=== PATIENT | female | born 1995 | race Caucasian/White ===

== ENCOUNTER → 2017-01-03 | Outpatient (CLI) | payer OTHER | LOC: LC 16:33 | PROVIDERS: ATTEND Student in an Organized Health Care Education/Training Program | PROC: 4A1HXCZ Monitoring of Products of Conception, Cardiac Rate, External Approach (ICD-10-PCS; principal; 2017-01-03) | DX: O47.03 False labor before 37 completed weeks of gestation, third trimester (principal); Z3A.33 33 weeks gestation of pregnancy | CPT/HCPCS: 59025 ==

== ENCOUNTER 2017-02-16 19:02 | Inpatient (IN) | payer OTHER ==
--- NOTE | 2017-02-16 19:20 | Non Stress Test Report ---
Non Stress Test Datetime Report Generated by CPN: 02/16/2017 19:20 DEMOGRAPHIC EGA NST: 33.4 INDICATION Indication for Study: Ordered by Provider Indication for Study (NST) Other: nst MONITORING Monitor Explained: Monitor Explained; Test Explained; Patient Verbalized Understanding Time on Monitor: 01/03/2017 17:15 Time off Monitor: 01/03/2017 18:06 NST Duration: 51 NST INTERVENTIONS NST Interventions: PO Hydration; Reposition Patient Physician Notified NST: Dr. Mandel BABY A: [id number] BABY A Movement : Present Contraction Frequency : 2-3 FHR Baseline : 125 Accelerations : 15X15 Decelerations : None Variability : Moderate 6-25bpm NST Review: Meets Criteria for Reactive NST NST Review and Verified By : Tamra vee RNC NST Results: Reactive NST REPORT Report Trigger: Send Report
[2017-02-16 20:00] LABS: AMNISURE (ROM) POSITIVE (NEGATIVE)
[2017-02-16 20:02] LABS: APPEARANCE,URINE SLIGHTLY-CLOUDY; BILIRUBIN,URINE NEGATIVE (NEGATIVE); GLUCOSE, URINE NEGATIVE (NEGATIVE); KETONES,URINE NEGATIVE (NEGATIVE); LEUKOCYTE ESTERASE,URINE NEGATIVE (NEGATIVE); NITRITE,URINE NEGATIVE (NEGATIVE); PROTEIN,URINE 30 mg/dL (NEGATIVE); URINE SPECIFIC GRAVITY 1.014; UROBILINOGEN,URINE NEGATIVE mg/dL (<2.0)
[2017-02-16] MEDS ORDERED: RINGERS SOLUTION,LACTATED 1,000 ML IV ONE (20:10)
[2017-02-16 20:18] LABS: URINE BARBITURATES SCREEN NEGATIVE; URINE METHADONE SCREEN NEGATIVE; URINE OPIATES LOW NEGATIVE; URINE PHENCYCLIDINE SCREEN NEGATIVE
[2017-02-16 20:45] LABS: ABSOLUTE BASOPHILS # (AUTO) 0.1 10^3/uL (0.0-0.2); ABSOLUTE EOSINOPHILS # (AUTO) 0.1 10^3/uL (0.0-0.6); ABSOLUTE LYMPHOCYTES (AUTO) 2.5 10^3/uL (0.5-4.7); ABSOLUTE MONOCYTES (AUTO) 1.1 10^3/uL (0.1-1.4); ABSOLUTE NEUT (AUTO) 11.1 10^3/uL (1.7-8.2); BASOPHILS % (AUTO) 0.8 % (0-2); EOSINOPHILS % (AUTO) 0.4 % (0-6); HEMATOCRIT 36.4 % (36.0-47.0); HEMOGLOBIN 12.1 g/dL (12.0-15.5); HGB HCT DIFFERENCE -0.1; LYMPHOCYTES % (AUTO) 16.8 % (13-45); MEAN CORPUSCULAR HEMOGLOBIN 28.5 pg (27.0-33.4); MEAN CORPUSCULAR HGB CONC 33.2 g/dL (32.0-36.0); MEAN CORPUSCULAR VOLUME 86 fl (80-97); MONOCYTES % (AUTO) 7.5 % (3-13); RED BLOOD COUNT 4.24 10^6/uL (3.72-5.28); RED CELL DISTRIBUTION WIDTH 14.4 % (11.5-14.0); SEGMENTED NEUTROPHILS % (AUTO) 74.5 % (42-78); WHITE BLOOD COUNT 14.9 10^3/uL (4.0-10.5)
[2017-02-16] MEDS ORDERED: OXYTOCIN/NORMAL SALINE 20 UNIT/1,000 ML RTUINJ ONE (20:55)
[2017-02-16] MEDS ORDERED: MISOPROSTOL 0.2 MG TABLET ONE (20:55)
[2017-02-16] MEDS ORDERED: LIDOCAINE 1% INJ-PF (10 MG/ML) 30 ML SDV ONE (20:55)
[2017-02-16] MEDS ORDERED: OXYTOCIN/NORMAL SALINE 1,000 ML IV PRN (21:24)
[2017-02-16] MEDS ORDERED: EPHEDRINE SULFATE INJ 50 MG/1 ML AMPULE ONE (22:14)
[2017-02-16] MEDS ORDERED: FENTANYL CITRATE INJ/PF 100 MCG/2 ML AMPUL ONE (22:14)
[2017-02-16] MEDS ORDERED: PHENYLEPHRINE HCL INJ/PF 10 MG/1 ML SDV ONE (22:15)
[2017-02-16] MEDS ORDERED: BUPIVACAINE HCL 0.25 % INJ/PF (2.5 MG/1 ML) 30 ML VIAL ONE (22:15)
[2017-02-16] MEDS ORDERED: FENTANYL/BUPIVACAINE/NS/PF 200 MCG/100 ML RTUINJ EPI ONE (22:15)
[2017-02-17] MEDS ORDERED: FENTANYL CITRATE INJ/PF 100 MCG/2 ML AMPUL ONE (03:25)
[2017-02-17] MEDS ORDERED: ZOLPIDEM TARTRATE 5 MG TABLET PO PRN (04:17)
[2017-02-17] MEDS ORDERED: MAGNESIUM HYDROXIDE SUSP 30 ML UDCUP PO PRN (04:17)
[2017-02-17] MEDS ORDERED: GLYCERIN/WITCH HAZEL LEAF 1 EACH MED..PAD TP PRN (04:17)
[2017-02-17] MEDS ORDERED: DIPH/PERTUSS(ACELL)/TETANUS VAC/PF 0.5 ML SYR (>=10YO) IM PRN (04:17)
[2017-02-17] MEDS ORDERED: OXYTOCIN/NORMAL SALINE 1,000 ML IV PRN (04:17)
[2017-02-17] MEDS ORDERED: MEASLES,MUMPS&RUBELLA VACC/PF 0.5 ML VIAL SUBCUT PRN (04:17)
[2017-02-17] MEDS ORDERED: ACETAMINOPHEN 325 MG TABLET PO PRN (04:17)
[2017-02-17] MEDS ORDERED: PSEUDOEPHEDRINE HCL 30 MG TABLET PO PRN (04:17)
[2017-02-17] MEDS ORDERED: BENZOCAINE/MENTHOL AEROSOL SPRAY 56 ML TOP PRN (04:17)
[2017-02-17] MEDS ORDERED: PROMETHAZINE HCL 25 MG SUPP.RECT PR PRN (04:17)
[2017-02-17] MEDS ORDERED: PROMETHAZINE HCL INJ 25 MG/1 ML VIAL IV PRN (04:17)
[2017-02-17] MEDS ORDERED: ACETAMINOPHEN 650 MG SUPP.RECT PR PRN (04:17)
[2017-02-17] MEDS ORDERED: PROMETHAZINE HCL 25 MG TABLET PO PRN (04:17)
[2017-02-17] MEDS ORDERED: NA PHOS,M-B/NA PHOS,DI-BA (ADULT) 133 ML ENEMA PR PRN (04:17)
[2017-02-17] MEDS ORDERED: DIPHENHYDRAMINE HCL 25 MG CAPSULE PO PRN (04:17)
[2017-02-17] MEDS ORDERED: DIBUCAINE 1% OINTMENT 28 GM TP PRN (04:17)
[2017-02-17] MEDS ORDERED: ACETAMINOPHEN WITH CODEINE #3 TABLET PO PRN ×2 (04:17)
--- NOTE | 2017-02-17 04:31 | Delivery Summary ---
Del Sum A-C Datetime Report Generated by CPN: 02/17/2017 04:31 DELIVERY PERSONNEL DELIVERY PERSONNEL: [phone] Delivery Doctor:: Farnaz Mandel MD Labor and Delivery Nurse:: Qi Sarmiento RNautomatic head sawyer Nurse:: Alpa Zheng RN Historical Society Director/CHRISTOPHER: Kayce Whitt CNA Additional Personnel: : Tamra Neely RN MATERNAL INFORMATION Delivery Anesthesia: Epidural Medications After Delivery: Pitocin Bolus-Please Comment; Pitocin Drip 20 Units/1000ml NSS Meds After Delivery Comment: cytotec 1000mcg ND Estimated Blood Loss (ml): 250 Maternal Complications: Precipitous Labor (<3hrs) Provider Comments: VFI delivered in ANTHONY presentation. No nuchal cord. Shoulders and body delivered without difficulty. Cord doubly clamped and cut and infant to maternal abdomen. Placenta delivered intact spontaneously. FF at U. Uterine exploration revealed no e/o retained POC/placenta. 2nd degree and Bilateral labial lacerations repaired with good hemostasis. Apgars 9/9, weight 7#15. Mother and baby stable upon provider leaving the room. LABOR SUMMARY EDC: 02/17/2017 00:00 No. Babies in Womb: 1 Attempted: No Labor Anesthesia: Epidural LABOR INFORMATION Reason for Induction: Not Applicable Onset of Labor: 02/17/2017 01:25 Complete Dilatation: 02/17/2017 02:46 Oxytocin: Augmentation Group B Beta Strep: negative Steroids Given: None Reason Steroids Not Administered: Not Applicable MEMBRANES Membranes Rupture Method: Spontaneous Rupture of Membranes: 02/16/2017 18:15 Length of Rupture (hr): 8.82 Amniotic Fluid Color: Clear Amniotic Fluid Amount: Small STAGES OF LABOR Stage 1 hr: 1 Stage 1 min: 21 Stage 2 hr: 0 Stage 2 min: 18 Stage 3 hr: 0 Stage 3 min: 2 Total Time in Labor hr: 1 Total Time in Labor min: 41 VAGINAL DELIVERY Episiotomy: None Laceration Extension: Second Degree Laceration Type: Perineal Laceration Repair: Yes Laceration Repair Note: 2nd degree perineal laceration and bilateral labial lacerations repaired with good hemostasis. Sponge Count Correct: Yes Sharps Count Correct: Yes BABY A INFORMATION Delivery Date/Time: 02/17/2017 03:04 Method of Delivery: Vaginal Born in Route : No : N/A Forceps: N/A Vacuum Extraction: N/A Shoulder Dystocia : No PRESENTATION/POSITION BABY A Presentation: Cephalic Cephalic Presentation: Vertex Vertex Position: Right Occipital Anterior Breech Presentation: N/A PLACENTA INFORMATION BABY A Placenta Delivery Time : 02/17/2017 03:06 Placenta Method of Delivery: Spontaneous Placenta Status: Delivered SCORES BABY A Heart Rate 1 min: >100 bpm Resp Effort 1 min: Good Cry Reflex Irritability 1 min: Cough or Sneeze or Pulls Away Muscle Tone 1 min: Active Motion Color 1 min: Body [place], Extremities Blue SCORE 1 MIN: 9 Heart Rate 5 min: >100 bpm Resp Effort 5 min: Good Cry Reflex Irritability 5 min: Cough or Sneeze or Pulls Away Muscle Tone 5 min: Active Motion Color 5 min: Body [place], Extremities Blue Resuscitation Effort 5 min: N/A SCORE 5 MIN: 9 INFANT INFORMATION BABY A Gestational Age at Delivery: 40.0 Gestational Status: Full Term- 39- 40.6 Weeks Infant Outcome : Liveborn (Annotations: Data stored by [facility] on behalf of user) Infant Condition : Stable Infant Sex: Female IDENTIFICATION BABY A Infant Verification Date/Time: 02/17/2017 03:48 ID Band Number: [id number] Mother's Name Verified: Yes Infant RN Verifying Infant: Tamra Zheng RN/ B Torsten RN WEIGHT/LENGTH BABY A Infant Birthweight (gm): 3600 Infant Weight (lb): 7 Weight (oz): 15 Infant Length (in): 21.00 Length (cm): 53.34 CORD INFORMATION BABY A No. Cord Vessels: 3 Nuchal Cord : N/A (Annotations: Data stored by [facility] on behalf of user) Cord Blood Taken: Yes-For Eval (Mom's Blood Type - or O+) Infant Suction: Mouth; Nose ASSESSMENT BABY A Infant Complications: None Physical Findings at Delivery: Within Normal Limits Infant Respirations: Appears Normal Skin to Skin: Yes Skin to Skin Time (min): 35 General Office Clerk/ALS Called : No Care By: AUSTYN Johns RN Transferred To: Remains with Mother SIGNATURES Signature: with User ID: [email or web address]
--- NOTE | 2017-02-17 05:30 | Admission Physical ---
Datetime Report Generated by CPN: 02/17/2017 05:30 CURRENT ADMISSION Chief Complaint: Uterine Contractions; Suspected Ruptured Membranes Indication for Induction: PROM Admit Plan: Admit to Unit; Initiate Labor Induction Protocol ALLERGIES Medication Allergies: No Medication Allergies: No Known Allergies (02/16/2017) Medication Allergies: No Known Allergies (01/03/2017) Latex: No Latex Allergies Food Allergies: no Environmental Allergies: no OBSTETRICAL HISTORY EDC: 02/17/2017 00:00 : 1 Para: 0 Term: 0 : 0 SAB: 0 IAB: 0 Ectopic: 0 Livin Cesareans: 0 VBACs: 0 Multiple Births: 0 Gestational Diabetes: No Rh Sensitization: No Incompetent Cervix: No DONYA: No Infertility: No ART Treatment: No Uterine Anomaly: No IUGR: No Hx Previous C/S: No Macrosomia: No Hx Loss/Stillborn: No PIH: No Hx : No Placenta Previa/Abruption: No Depression/PP Depression: No PTL/PROM: No Post Hemorrhage: No Current Procedures: Ultrasound; NST Obstetrical History Comments: Current- arrythmia resolved SEE RECORDS Alcohol: No Marijuana : No Cocaine: No Other Illicit Drugs: No Cigarettes: Never Smoker. [id number] MEDICAL HISTORY Diabetes: No Blood Transfusion: No Pulmonary Disease (Asthma, TB): No Breast Disease: No Hypertension: No Com Writer Surgery: No Heart Disease: No Hosp/Surgery: No Autoimmune Disorder: No Anesthetic Complications: No Kidney Disease: No Abnormal Pap Smear: No Neuro/Epilepsy: No Psychiatric Disorders: No Other Medical Diseases: No Hepatitis/Liver Disease: No Significant Family History: No Varicosities/Phlebitis: No Trauma/Violence : No Thyroid Dysfunction: No INFECTIOUS HISTORY Gonorrhea: No Genital Herpes: No Chlamydia: No Tuberculosis: No Syphilis: No Hepatitis: No HIV/AIDS Exposure: No Rash or Viral Illness: No HPV: No PHYSICAL EXAM General: Normal HEENT: Normal Neurologic: Normal Thyroid: Normal Heart: Normal Lungs: Normal Breast: Deferred Back: Normal Abdomen: Normal Genitourinary Exam: Normal Extremities: Normal DTRs: Normal Pelvic Type: Adequate Vital Signs: Reviewed VAGINAL EXAM Dilatation: 1 Effacement: 80 Station: 0 Contraction Comments: Q 2-3 MEMBRANES Pooling: Positive [place] Results: Positive Membranes: Ruptured Amniotic Fluid Color: Clear FETUS A EGA: 39.6 Monitoring: External US FHR- Baseline: 125 Variability: Moderate 6-25bpm Accelerations: 10X10 Decelerations: None FHR Category: Category I Estimated Weight (gm): 3723 Presentation: Vertex Admit Comment: 22yo at 39+6ega presents for SROM at 1850 today. +Amnisure. c/b transfer of care at 26wks and apparently audible arrhythmia in fetus that has resolved (saw MFM). GBS negative. Plan for admission and low dose pitocin then increase pitocin for IOL. EFW 8#3oz. Anticipate . CAT I FHR tracing. pelvis adequate for PABLO PLANS FOR LABOR AND DELIVERY Labor and Delivery: None Pain Management: Epidural Feeding Preference: Breast Benefit of Breast Feed Discussed: Yes Circumcision: N/A INFORMED CONSENT Informed Consent Obtained: Vaginal Delivery; Risks, Benefits and Alternatives Discussed Signature: with User ID: [email or web address]
[2017-02-17] MEDS: IBUPROFEN 800 MG TABLET PO SCH ×3 (05:41→21:06)
[2017-02-17] MEDS: FAMOTIDINE 20 MG TABLET PO SCH ×2 (09:35→21:06)
[2017-02-17] MEDS: PRENATAL VITAMIN W-O CA NO5/FE FUMARATE/FA CAPSULE PO SCH (09:36)
[2017-02-17] MEDS: FERROUS SULFATE 325 MG TABLET PO SCH ×2 (09:36→18:03)
[2017-02-17] MEDS: DOCUSATE SODIUM 100 MG CAPSULE PO SCH ×2 (09:52→18:24)
[2017-02-17] MEDS: SENNOSIDES/DOCUSATE 8.6-50 MG 1 EACH TABLET PO SCH (09:52)
--- NOTE | 2017-02-17 11:28 | PDOC PROGRESS REPORT ---
Subjective-OB Subjective: Post Delivery Day: 22 year old. Denies any needs at this time. Pt doing well, no concerns. She reports light bleeding, regular diet and voiding without difficulty. Physical Exam (OB) Vital Signs: Temp Pulse Resp BP Pulse Ox 99.3 F 83 20 122/75 100 02/17/17 08:43 02/17/17 08:43 02/17/17 08:43 02/17/17 08:43 02/17/17 08:43 Intake & Output 02/16/17 02/17/17 02/18/17 06:59 06:59 06:59 Weight 63.6 kg - PIH/Pre-Eclampsia DTR's: 2 + Clonus: Negative Headache: Absent Epigastric Pain: No Visual Changes: No - Lochia Lochia Amount: Small 10-25 ml Lochia Color: Rubra/Red - Abdomen Description: Soft Hernia Present: No Fundal Description: Firm, Midline Fundal Height: u/u - u/2 Objective-Diagnostic Laboratory: 02/16/17 20:28 02/16/17 02/16/17 02/16/17 19:23 20:28 20:28 WBC 14.9 H RBC 4.24 Hgb 12.1 Hct 36.4 MCV 86 MCH 28.5 MCHC 33.2 RDW 14.4 H Plt Count 294 Seg Neutrophils % 74.5 Lymphocytes % 16.8 Monocytes % 7.5 Eosinophils % 0.4 Basophils % 0.8 Absolute Neutrophils 11.1 H Absolute Lymphocytes 2.5 Absolute Monocytes 1.1 Absolute Eosinophils 0.1 Absolute Basophils 0.1 Urine Color YELLOW Urine Appearance SLIGHTLY-CLOUDY Urine pH 6.0 Ur Specific [place] 1.014 Urine Protein 30 H Urine Glucose (UA) NEGATIVE Urine Ketones NEGATIVE Urine Blood SMALL H Urine Nitrite NEGATIVE Ur Leukocyte Esterase NEGATIVE Blood Type O POSITIVE Antibody Screen NEGATIVE Assessment and Plan(PN) - Assessment and Plan (1) Vaginal delivery Is this a current diagnosis for this admission?: Yes - Time Spent with Patient Time with patient: Less than 15 minutes Medications reviewed and adjusted accordingly: Yes - Disposition Anticipated Discharge: Home Within: within 24 hours
[2017-02-18] MEDS: IBUPROFEN 800 MG TABLET PO SCH ×3 (05:47→21:18)
[2017-02-18 07:23] LABS: HEMATOCRIT 30.3 % (36.0-47.0); HGB HCT DIFFERENCE -0.6; MEAN CORPUSCULAR HEMOGLOBIN 28.2 pg (27.0-33.4); MEAN CORPUSCULAR HGB CONC 32.6 g/dL (32.0-36.0); MEAN CORPUSCULAR VOLUME 86 fl (80-97); RED BLOOD COUNT 3.52 10^6/uL (3.72-5.28); WHITE BLOOD COUNT 13.6 10^3/uL (4.0-10.5)
[2017-02-18 07:29] LABS: HEMOGLOBIN 9.9 g/dL (12.0-15.5)
[2017-02-18] MEDS: SENNOSIDES/DOCUSATE 8.6-50 MG 1 EACH TABLET PO SCH (09:25)
[2017-02-18] MEDS: FERROUS SULFATE 325 MG TABLET PO SCH ×2 (09:25→16:37)
[2017-02-18] MEDS: PRENATAL VITAMIN W-O CA NO5/FE FUMARATE/FA CAPSULE PO SCH (09:25)
[2017-02-18] MEDS: DOCUSATE SODIUM 100 MG CAPSULE PO SCH ×2 (09:25→16:37)
[2017-02-18] MEDS: FAMOTIDINE 20 MG TABLET PO SCH ×2 (09:25→21:18)
--- NOTE | 2017-02-18 11:57 | PDOC PROGRESS REPORT ---
Subjective-OB Subjective: Post Delivery Day: 22 year old. Denies any needs at this time. Doing well, no concerns. She reports light bleeding, regular diet and voiding well. Physical Exam (OB) Vital Signs: Temp Pulse Resp BP Pulse Ox 98.0 F 72 15 114/68 100 02/18/17 08:10 02/18/17 08:10 02/18/17 08:10 02/18/17 08:10 02/18/17 08:10 Intake & Output 02/17/17 02/18/17 02/19/17 06:59 06:59 06:59 Weight 63.6 kg - PIH/Pre-Eclampsia DTR's: 2 + Clonus: Negative Headache: Absent Epigastric Pain: No Visual Changes: No - Lochia Lochia Amount: Small 10-25 ml Lochia Color: Rubra/Red - Abdomen Description: Soft Hernia Present: No Fundal Description: Firm Fundal Height: u/u - u/2 Objective-Diagnostic Laboratory: 02/18/17 07:08 02/18/17 07:08 WBC 13.6 H RBC 3.52 L Hgb 9.9 L D Hct 30.3 L MCV 86 MCH 28.2 MCHC 32.6 RDW 15.0 H Plt Count 248 Assessment and Plan(PN) - Assessment and Plan (1) Vaginal delivery Is this a current diagnosis for this admission?: Yes - Time Spent with Patient Time with patient: Less than 15 minutes Medications reviewed and adjusted accordingly: Yes - Disposition Anticipated Discharge: Home Within: within 24 hours
[2017-02-19] MEDS: IBUPROFEN 800 MG TABLET PO SCH (06:07)
[2017-02-19 08:20] VITALS: BP 119/82
[2017-02-19] MEDS: DOCUSATE SODIUM 100 MG CAPSULE PO SCH (09:18)
[2017-02-19] MEDS: PRENATAL VITAMIN W-O CA NO5/FE FUMARATE/FA CAPSULE PO SCH (09:18)
[2017-02-19] MEDS: FAMOTIDINE 20 MG TABLET PO SCH (09:18)
[2017-02-19] MEDS: SENNOSIDES/DOCUSATE 8.6-50 MG 1 EACH TABLET PO SCH (09:18)
[2017-02-19] MEDS: FERROUS SULFATE 325 MG TABLET PO SCH (09:18)
--- NOTE | 2017-02-19 11:29 | PDOC DISCHARGE SUMMARY ---
Final Diagnosis Discharge Date: 02/18/17 - Final Diagnosis (1) Vaginal delivery Is this a current diagnosis for this admission?: Yes Discharge Data - Discharge Medication Home Medications: Pnv No.122/Iron/Folic Acid [ Multi Tablet] 1 tab PO DAILY 01/03/17 Reason(s) for Admission: Onset of Labor Procedures: NST Intrapartum Procedure(s): Spontaneous Vaginal Delivery Complication(s): Laceration-Labial Laceration-Degree: 2nd - Diagnosis Test Laboratory: Temp Pulse Resp BP Pulse Ox 98.0 F 72 15 114/68 100 02/18/17 08:10 02/18/17 08:10 02/18/17 08:10 02/18/17 08:10 02/18/17 08:10 02/16/17 02/16/17 02/18/17 19:23 20:28 07:08 RBC 4.24 3.52 L Hgb 12.1 9.9 L D Hct 36.4 30.3 L Urine Opiates Screen NEGATIVE - Discharge information/Instructions Discharge Activity: Balance Activity w/Rest, Pelvic Rest Discharge Diet: Regular Disposition: HOME, SELF-CARE Follow up with: [facility] in: 4, Weeks
== END 2017-02-19 12:00 | disposition home or self-care (01) | DRG 775 ==
LOC: LC 19:02 → LR 20:04 → 2S 02-17 05:29
PROVIDERS: ADMIT Student in an Organized Health Care Education/Training Program; ATTEND Student in an Organized Health Care Education/Training Program
PROC: 10E0XZZ Delivery of Products of Conception, External Approach (ICD-10-PCS; principal; 2017-02-16)
PROC: 0KQM0ZZ Repair Perineum Muscle, Open Approach (ICD-10-PCS; 2017-02-16)
PROC: 4A1HXCZ Monitoring of Products of Conception, Cardiac Rate, External Approach (ICD-10-PCS; 2017-02-16)
DX: O70.1 Second degree perineal laceration during delivery (principal); Z37.0 Single live birth; O62.3 Precipitate labor; Z3A.39 39 weeks gestation of pregnancy
CPT/HCPCS: 36415; 80307; 81005; 84112; 85025; 85027; 86592; 86850; 86900; 86901; 94760; J2370; J2590; J3010; J3490

== ENCOUNTER 2018-06-13 16:46 | Outpatient (CLI) | payer OTHER | END 2018-06-13 18:33 | disposition home or self-care (01) | LOC: LC 16:46 | PROVIDERS: ATTEND Obstetrics & Gynecology Gynecology | PROC: 4A1HXCZ Monitoring of Products of Conception, Cardiac Rate, External Approach (ICD-10-PCS; principal; 2018-06-13) | DX: O24.419 Gestational diabetes mellitus in pregnancy, unspecified control (principal); Z3A.34 34 weeks gestation of pregnancy | CPT/HCPCS: 59025 ==

== ENCOUNTER 2018-07-05 16:54 | Outpatient (CLI) | payer OTHER ==
--- NOTE | 2018-07-05 17:44 | Non Stress Test Report ---
Non Stress Test Datetime Report Generated by CPN: 07/05/2018 17:44 DEMOGRAPHIC EGA NST: 37.3 EGA NST: 34.2 INDICATION Indication for Study: Ordered by Provider Indication for Study: Diabetes Mellitus; Ordered by Provider VITAL SIGNS Temperature - NST: 98.0 Temperature - NST: 98.1 Pulse - NST: 90 RESP - NST: 16 RESP - NST: 18 NBPSYS NST: 93 NBPDIA NST: 56 MONITORING Monitor Explained: Monitor Explained; Test Explained; Patient Verbalized Understanding Monitor Explained: Monitor Explained; Test Explained; Patient Verbalized Understanding Time on Monitor: 07/05/2018 17:03 Time on Monitor: 06/13/2018 16:58 Time off Monitor: 07/05/2018 17:31 Time off Monitor: 06/13/2018 18:22 NST Duration: 28 NST Duration: 84 NST INTERVENTIONS NST Interventions: PO Hydration NST Interventions: PO Hydration; Reposition Patient Physician Notified NST: Younger Physician Notified NST: DR CONNOR BABY A: [id number] BABY A Movement : Present Movement : Present Contraction Frequency : 7-14 Contraction Frequency : OCC FHR Baseline : 130 FHR Baseline : 125 Accelerations : 15X15 Accelerations : 15X15 Decelerations : None Decelerations : None Variability : Moderate 6-25bpm Variability : Moderate 6-25bpm NST Review: Meets Criteria for Reactive NST NST Review: Meets Criteria for Reactive NST NST Review and Verified By : Domenic Rodarte RN NST Results: Reactive NST Results: Reactive NST REPORT Report Trigger: Send Report
== END 2018-07-05 17:36 | disposition home or self-care (01) ==
LOC: LC 16:54
PROVIDERS: ATTEND Obstetrics & Gynecology
DX: O36.8390 Maternal care for abnormalities of the fetal heart rate or rhythm, unspecified trimester, not applicable or unspecified (principal)
CPT/HCPCS: 59025

== ENCOUNTER 2018-07-06 19:17 | Outpatient (CLI) | payer OTHER ==
[2018-07-06 19:55] LABS: APPEARANCE,URINE CLEAR; BILIRUBIN,URINE NEGATIVE (NEGATIVE); COLOR,URINE STRAW; GLUCOSE, URINE NEGATIVE (NEGATIVE); KETONES,URINE NEGATIVE (NEGATIVE); LEUKOCYTE ESTERASE,URINE SMALL (NEGATIVE); NITRITE,URINE NEGATIVE (NEGATIVE); PROTEIN,URINE NEGATIVE (NEGATIVE); URINE SPECIFIC GRAVITY 1.004; UROBILINOGEN,URINE NEGATIVE mg/dL (<2.0)
[2018-07-06 20:12] LABS: URINE AMPHETAMINES SCREEN NEGATIVE; URINE BARBITURATES SCREEN NEGATIVE; URINE BENZODIAZEPINES SCREEN NEGATIVE; URINE COCAINE SCREEN NEGATIVE; URINE MARIJUANA (THC) SCREEN NEGATIVE; URINE METHADONE SCREEN NEGATIVE; URINE PHENCYCLIDINE SCREEN NEGATIVE
[2018-07-06] MEDS ORDERED: HYDROXYZINE PAMOATE 50 MG CAPSULE PO ONE (20:34)
[2018-07-06] MEDS ORDERED: HYDROXYZINE PAMOATE 50 MG CAPSULE ONE (20:34)
--- NOTE | 2018-07-06 23:23 | Non Stress Test Report ---
Non Stress Test Datetime Report Generated by CPN: 07/06/2018 23:23 DEMOGRAPHIC Test Number: 3 EGA NST: 37.4 INDICATION Indication for Study: Ordered by Provider VITAL SIGNS Temperature - NST: 97.2 Pulse - NST: 89 RESP - NST: 14 NBPSYS NST: 100 NBPDIA NST: 66 URINE RESULTS Urine Protein, NST: Negative Urine Ketones - NST: Negative Urine Glucose - NST: Negative Urine Blood - NST: Negative MONITORING Monitor Explained: Monitor Explained; Test Explained; Patient Verbalized Understanding Time on Monitor: 07/06/2018 19:43 Time off Monitor: 07/06/2018 21:39 NST Duration: 116 NST INTERVENTIONS NST Interventions: PO Hydration Physician Notified NST: Dr. Dustin BABY A: [id number] BABY A Movement : Present Contraction Frequency : 2-3 FHR Baseline : 135 Accelerations : 15X15 Decelerations : None Variability : Moderate 6-25bpm NST Review: Meets Criteria for Reactive NST NST Review and Verified By : A. Misyak NST Results: Reactive NST REPORT Report Trigger: Send Report Report Trigger: Send Report
== END 2018-07-06 21:45 | disposition home or self-care (01) ==
LOC: LC 19:17
PROVIDERS: ATTEND Obstetrics & Gynecology
PROC: 4A1HXCZ Monitoring of Products of Conception, Cardiac Rate, External Approach (ICD-10-PCS; principal; 2018-07-06)
DX: O47.1 False labor at or after 37 completed weeks of gestation (principal); O99.283 Endocrine, nutritional and metabolic diseases complicating pregnancy, third trimester; E03.9 Hypothyroidism, unspecified; Z3A.37 37 weeks gestation of pregnancy
CPT/HCPCS: 80307; 81005; 84112

== ENCOUNTER → 2018-07-12 | Outpatient (CLI) | payer OTHER ==
--- NOTE | 2018-07-12 18:21 | Non Stress Test Report ---
Non Stress Test Datetime Report Generated by CPN: 07/12/2018 18:21 DEMOGRAPHIC EGA NST: 38.3 INDICATION Indication for Study: Diabetes Mellitus; Ordered by Provider MONITORING Monitor Explained: Monitor Explained; Test Explained; Patient Verbalized Understanding Time on Monitor: 07/12/2018 17:18 Time off Monitor: 07/12/2018 17:43 NST Duration: 25 NST INTERVENTIONS NST Interventions: PO Hydration; Reposition Patient Physician Notified NST: P Mir CNM BABY A: [id number] BABY A Movement : Present FHR Baseline : 135 Accelerations : 15X15 Decelerations : None Variability : Moderate 6-25bpm NST Review: Meets Criteria for Reactive NST NST Review and Verified By : Rosmery Camp RNC NST Results: Reactive NST REPORT Report Trigger: Send Report
== END ==
LOC: LC 17:07
PROVIDERS: ATTEND Student in an Organized Health Care Education/Training Program
DX: O36.8390 Maternal care for abnormalities of the fetal heart rate or rhythm, unspecified trimester, not applicable or unspecified (principal)
CPT/HCPCS: 59025

== ENCOUNTER 2018-07-13 18:46 | Inpatient (IN) | payer OTHER ==
[2018-07-13 19:23] LABS: APPEARANCE,URINE CLEAR; BILIRUBIN,URINE NEGATIVE (NEGATIVE); COLOR,URINE STRAW; GLUCOSE, URINE NEGATIVE (NEGATIVE); KETONES,URINE NEGATIVE (NEGATIVE); LEUKOCYTE ESTERASE,URINE SMALL (NEGATIVE); NITRITE,URINE NEGATIVE (NEGATIVE); PROTEIN,URINE NEGATIVE (NEGATIVE); URINE SPECIFIC GRAVITY 1.004; UROBILINOGEN,URINE NEGATIVE mg/dL (<2.0)
[2018-07-13 19:40] LABS: URINE AMPHETAMINES SCREEN NEGATIVE; URINE BARBITURATES SCREEN NEGATIVE; URINE BENZODIAZEPINES SCREEN NEGATIVE; URINE COCAINE SCREEN NEGATIVE; URINE MARIJUANA (THC) SCREEN NEGATIVE; URINE METHADONE SCREEN NEGATIVE; URINE PHENCYCLIDINE SCREEN NEGATIVE
--- NOTE | 2018-07-13 21:17 | Admission Physical ---
Datetime Report Generated by CPN: 07/13/2018 21:17 CURRENT ADMISSION Chief Complaint: Uterine Contractions Indication for Induction: Not Applicable Admit Impression : Term, Intrauterine Admit Plan: Admit to Unit; Initiate Labor Protocol ALLERGIES Medication Allergies: No Medication Allergies: No Known Allergies (07/13/2018) Latex: No Latex Allergies Food Allergies: NKA Environmental Allergies: NKA OBSTETRICAL HISTORY EDC: 07/23/2018 00:00 : 3 Para: 1 : 0 SAB: 1 Livin Gestational Diabetes: Yes Rh Sensitization: No Incompetent Cervix: No DONYA: No Infertility: No ART Treatment: No Uterine Anomaly: No IUGR: No Hx Previous C/S: No Macrosomia: No Hx Loss/Stillborn: No PIH: No Hx : No Placenta Previa/Abruption: No Depression/PP Depression: No PTL/PROM: No Post Hemorrhage: No Obstetrical History Comments: 02/2017 @ 40 weeks; Baby girl G2 - ? SAB G3- Current ; GDM diet controlled SEE RECORDS Alcohol: No Marijuana : No Cocaine: No Other Illicit Drugs: No Cigarettes: Never Smoker. [id number] MEDICAL HISTORY Diabetes: No Blood Transfusion: No Pulmonary Disease (Asthma, TB): No Breast Disease: No Hypertension: No Brewmaster Surgery: No Heart Disease: No Hosp/Surgery: Yes Autoimmune Disorder: No Anesthetic Complications: No Kidney Disease: No Abnormal Pap Smear: No Neuro/Epilepsy: No Psychiatric Disorders: No Other Medical Diseases: No Hepatitis/Liver Disease: No Significant Family History: No Varicosities/Phlebitis: No Trauma/Violence : No Thyroid Dysfunction: Yes Medical History Comments: Hypothyroid - pt taking Synthroid INFECTIOUS HISTORY Gonorrhea: No Genital Herpes: No Chlamydia: No Tuberculosis: No Syphilis: No Hepatitis: No HIV/AIDS Exposure: No Rash or Viral Illness: No HPV: No PHYSICAL EXAM General: Normal HEENT: Normal Neurologic: Normal Thyroid: Normal Heart: Normal Lungs: Normal Breast: Deferred Back: Normal Abdomen: Normal Genitourinary Exam: Normal Extremities: Normal DTRs: Normal Pelvic Type: Adequate Vital Signs: Reviewed VAGINAL EXAM Dilatation: 5 Effacement: 80 Station: -1 MEMBRANES Pooling: Negative Membranes: Intact FETUS A EGA: 38.4 Monitoring: External US FHR- Baseline: 140 Variability: Moderate 6-25bpm Decelerations: None FHR Category: Category I Presentation: Vertex PLANS FOR LABOR AND DELIVERY Labor and Delivery: None Pain Management: Epidural Feeding Preference: Breast Benefit of Breast Feed Discussed: Yes Circumcision: Yes INFORMED CONSENT Signature: with User ID: [email or web address]
[2018-07-13] MEDS ORDERED: FENTANYL CITRATE INJ/PF 100 MCG/2 ML AMPUL ONE (21:51)
[2018-07-13] MEDS ORDERED: PHENYLEPHRINE HCL INJ/PF 10 MG/1 ML SDV ONE (21:51)
[2018-07-13] MEDS ORDERED: FENTANYL/BUPIVACAINE/NS/PF 300 MCG/150 ML RTUINJ EPI ONE (21:52)
[2018-07-13] MEDS ORDERED: EPHEDRINE SULFATE INJ 50 MG/1 ML AMPULE ONE (21:52)
[2018-07-13] MEDS ORDERED: BUPIVACAINE HCL 0.25 % INJ/PF (2.5 MG/1 ML) 30 ML VIAL ONE (21:52)
[2018-07-13] MEDS ORDERED: LIDOCAINE 1.5%/EPINEPHRINE INJ-PF 30 ML SDV ONE (21:53)
[2018-07-13 21:59] LABS: ABSOLUTE BASOPHILS # (AUTO) 0.2 10^3/uL (0.0-0.2); ABSOLUTE LYMPHOCYTES (AUTO) 2.4 10^3/uL (0.5-4.7); ABSOLUTE MONOCYTES (AUTO) 1.2 10^3/uL (0.1-1.4); ABSOLUTE NEUT (AUTO) 11.7 10^3/uL (1.7-8.2); BASOPHILS % (AUTO) 1.2 % (0-2); EOSINOPHILS % (AUTO) 0.2 % (0-6); HEMOGLOBIN 10.3 g/dL (12.0-15.5); LYMPHOCYTES % (AUTO) 15.5 % (13-45); MEAN CORPUSCULAR HEMOGLOBIN 27.4 pg (27.0-33.4); MEAN CORPUSCULAR HGB CONC 33.3 g/dL (32.0-36.0); MEAN CORPUSCULAR VOLUME 82 fl (80-97); PLATELET COUNT 303 10^3/uL (150-450); RED BLOOD COUNT 3.77 10^6/uL (3.72-5.28); RED CELL DISTRIBUTION WIDTH 15.4 % (11.5-14.0); SEGMENTED NEUTROPHILS % (AUTO) 75.1 % (42-78); TOTAL CELLS COUNTED % (AUTO) 100 %; WHITE BLOOD COUNT 15.6 10^3/uL (4.0-10.5)
[2018-07-13] MEDS ORDERED: MISOPROSTOL 0.2 MG TABLET ONE (22:01)
[2018-07-13] MEDS ORDERED: OXYTOCIN/NORMAL SALINE 20 UNIT/1,000 ML RTUINJ ONE (22:01)
[2018-07-13] MEDS ORDERED: LIDOCAINE 1% INJ-PF (10 MG/ML) 30 ML SDV ONE (22:01)
[2018-07-13] MEDS ORDERED: RINGERS SOLUTION,LACTATED 1,000 ML IV PRN (22:09)
[2018-07-13] MEDS ORDERED: RINGERS SOLUTION,LACTATED 1,000 ML IV ONE (22:30)
[2018-07-14] MEDS ORDERED: OXYTOCIN/NORMAL SALINE 20 UNIT/1,000 ML RTUINJ ONE (00:18)
[2018-07-14] MEDS ORDERED: MEASLES,MUMPS&RUBELLA VACC/PF 0.5 ML VIAL SUBCUT PRN (00:34)
[2018-07-14] MEDS ORDERED: BENZOCAINE/MENTHOL AEROSOL SPRAY 56 ML TOP PRN (00:34)
[2018-07-14] MEDS ORDERED: DIPHENHYDRAMINE HCL 25 MG CAPSULE PO PRN (00:34)
[2018-07-14] MEDS ORDERED: PROMETHAZINE HCL 25 MG TABLET PO PRN (00:34)
[2018-07-14] MEDS ORDERED: ACETAMINOPHEN 650 MG SUPP.RECT PR PRN (00:34)
[2018-07-14] MEDS ORDERED: DIPH/PERTUSS(ACELL)/TETANUS VAC/PF 0.5 ML SYR (>=10YO) IM PRN (00:34)
[2018-07-14] MEDS ORDERED: DIBUCAINE 1% OINTMENT 28 GM TP PRN (00:34)
[2018-07-14] MEDS ORDERED: ACETAMINOPHEN WITH CODEINE #3 TABLET PO PRN ×2 (00:34)
[2018-07-14] MEDS ORDERED: ZOLPIDEM TARTRATE 5 MG TABLET PO PRN (00:34)
[2018-07-14] MEDS ORDERED: PSEUDOEPHEDRINE HCL 30 MG TABLET PO PRN (00:34)
[2018-07-14] MEDS ORDERED: OXYTOCIN/NORMAL SALINE 20 UNIT/1,000 ML RTUINJ IV PRN (00:34)
[2018-07-14] MEDS ORDERED: PROMETHAZINE HCL 25 MG SUPP.RECT PR PRN (00:34)
[2018-07-14] MEDS ORDERED: GLYCERIN/WITCH HAZEL LEAF 1 EACH MED..PAD TP PRN (00:34)
[2018-07-14] MEDS ORDERED: PROMETHAZINE HCL INJ 25 MG/1 ML VIAL IV PRN (00:34)
[2018-07-14] MEDS ORDERED: MAGNESIUM HYDROXIDE SUSP 30 ML UDCUP PO PRN (00:34)
[2018-07-14] MEDS ORDERED: IBUPROFEN 800 MG TABLET ONE (00:34)
[2018-07-14] MEDS ORDERED: NA PHOS,M-B/NA PHOS,DI-BA (ADULT) 133 ML ENEMA PR PRN (00:34)
--- NOTE | 2018-07-14 02:12 | Warning Signs in Babies ---
VOD Warning Signs Datetime Report Generated by [facility]: 07/14/2018 02:11 VOD#608 -Warning Signs in Babies: Needs to be viewed. (06/13/2018 17:04:Katherine Jin RN)
--- NOTE | 2018-07-14 04:44 | Delivery Summary ---
Del Sum A-C Datetime Report Generated by CPN: 07/14/2018 04:44 DELIVERY PERSONNEL DELIVERY PERSONNEL: [id number] Delivery Doctor:: Mikaela Rosado MD Labor and Delivery Nurse:: Katherine Jin RNoperator ground based air defence Nurse:: Jess Pantoja RN Epitaxial Reactor Operator:: AUSTYN Jones Tech/STATEMENT CLERKS SUPERVISOR: Ron Ertel, STATEMENT CLERKS SUPERVISOR MATERNAL INFORMATION Delivery Anesthesia: Epidural Medications After Delivery: Pitocin Drip 20 Units/1000ml NSS Estimated Blood Loss (ml): 250 Maternal Complications: None LABOR SUMMARY EDC: 07/23/2018 00:00 No. Babies in Womb: 1 Attempted: No Labor Anesthesia: Epidural LABOR INFORMATION Reason for Induction: Not Applicable Onset of Labor: 07/13/2018 20:51 Complete Dilatation: 07/14/2018 00:02 Oxytocin: N/A Group B Beta Strep: Negative Antibiotics # of Doses: 0 Antibiotics Time of Last Dose: n/a Steroids Given: None Reason Steroids Not Administered: Not Applicable MEMBRANES Membranes Rupture Method: Artificial Rupture of Membranes: 07/14/2018 00:02 Length of Rupture (hr): 0.17 Amniotic Fluid Color: Clear Amniotic Fluid Amount: Moderate Amniotic Fluid Odor: Normal STAGES OF LABOR Stage 1 hr: 3 Stage 1 min: 11 Stage 2 hr: 0 Stage 2 min: 10 Stage 3 hr: 0 Stage 3 min: 3 Total Time in Labor hr: 3 Total Time in Labor min: 24 VAGINAL DELIVERY Episiotomy: None Laceration #1: None Laceration Extension #1: N/A Laceration #2: None Laceration Extension #2: N/A Laceration #3: None Laceration Extension #3: N/A Laceration Repair: Not Applicable Laceration Repair Note: some small skin breaks not in need of suturing Sponge Count Correct: Vaginal Sweep Performed Sharps Count Correct: No CSECTION DELIVERY Primary Indication: N/A Secondary Indication: N/A CSection Incidence: N/A Labor: N/A Elective: N/A BABY A INFORMATION Delivery Date/Time: 07/14/2018 00:12 Method of Delivery: Vaginal Born in Route : No : N/A Forceps: N/A Vacuum Extraction: N/A Shoulder Dystocia : No PRESENTATION/POSITION BABY A Presentation: Cephalic Cephalic Presentation: Vertex Vertex Position: Left Occipital Anterior Breech Presentation: N/A PLACENTA INFORMATION BABY A Placenta Delivery Time : 07/14/2018 00:15 Placenta Method of Delivery: Spontaneous Placenta Status: Delivered SCORES BABY A Heart Rate 1 min: >100 bpm Resp Effort 1 min: Good Cry Reflex Irritability 1 min: Cough or Sneeze or Pulls Away Muscle Tone 1 min: Active Motion Color 1 min: Body [place], Extremities Blue Resuscitation Effort 1 min: Tactile Stimulation SCORE 1 MIN: 9 Heart Rate 5 min: >100 bpm Resp Effort 5 min: Good Cry Reflex Irritability 5 min: Cough or Sneeze or Pulls Away Muscle Tone 5 min: Active Motion Color 5 min: Body [place], Extremities Blue SCORE 5 MIN: 9 INFANT INFORMATION BABY A Gestational Age at Delivery: 38.5 Gestational Status: Early Term- 37- 38.6 Weeks Outcome : Liveborn Condition : Stable Infant Sex: Male IDENTIFICATION BABY A Infant Verification Date/Time: 07/14/2018 00:20 ID Band Number: [id number] Mother's Name Verified: Yes RN Verifying : Melba PantojaShaw RN Additional Verifying Personnel: Ring, B. RN WEIGHT/LENGTH BABY A Birthweight (gm): 3810 Weight (lb): 8 Infant Weight (oz): 6 Infant Length (in): 21.00 Length (cm): 53.34 CORD INFORMATION BABY A No. Cord Vessels: 3 Nuchal Cord : N/A Cord Blood Taken: Yes-For Eval (Mom's Blood Type - or O+) Infant Suction: None ASSESSMENT BABY A Complications: None Physical Findings at Delivery: Within Normal Limits Physical Findings- Other: see nursery assessment for further information Infant Respirations: Appears Normal Skin to Skin: Yes Skin to Skin Time (min): 60 Apigee Developer/ALS Called : No Care By: Melvin Villasenor RN Transferred To: Remains with Mother BABY B INFORMATION : N/A SIGNATURES Signature: with User ID: [email or web address]
[2018-07-14 06:28] LABS: ABSOLUTE BASOPHILS # (AUTO) 0.1 10^3/uL (0.0-0.2); ABSOLUTE LYMPHOCYTES (AUTO) 2.8 10^3/uL (0.5-4.7); ABSOLUTE MONOCYTES (AUTO) 1.5 10^3/uL (0.1-1.4); ABSOLUTE NEUT (AUTO) 11.5 10^3/uL (1.7-8.2); BASOPHILS % (AUTO) 0.4 % (0-2); EOSINOPHILS % (AUTO) 0.1 % (0-6); HEMATOCRIT 29.6 % (36.0-47.0); LYMPHOCYTES % (AUTO) 17.8 % (13-45); MEAN CORPUSCULAR HEMOGLOBIN 27.8 pg (27.0-33.4); MEAN CORPUSCULAR HGB CONC 33.9 g/dL (32.0-36.0); MEAN CORPUSCULAR VOLUME 82 fl (80-97); MONOCYTES % (AUTO) 9.5 % (3-13); PLATELET COUNT 267 10^3/uL (150-450); RED BLOOD COUNT 3.61 10^6/uL (3.72-5.28); RED CELL DISTRIBUTION WIDTH 15.3 % (11.5-14.0); SEGMENTED NEUTROPHILS % (AUTO) 72.2 % (42-78); TOTAL CELLS COUNTED % (AUTO) 100 %; WHITE BLOOD COUNT 15.9 10^3/uL (4.0-10.5)
[2018-07-14] MEDS: IBUPROFEN 800 MG TABLET PO SCH ×3 (06:55→21:14)
[2018-07-14] MEDS ORDERED: GUAIFENESIN SYRP 200 MG/10 ML UDC PO PRN (07:51)
[2018-07-14] MEDS ORDERED: BENZOCAINE/MENTHOL SORE THROAT LOZENGE BUCCAL PRN (07:52)
[2018-07-14] MEDS: FERROUS SULFATE 325 MG TABLET PO SCH ×2 (10:03→17:55)
[2018-07-14] MEDS: SENNOSIDES/DOCUSATE 8.6-50 MG 1 EACH TABLET PO SCH (10:04)
[2018-07-14] MEDS: FAMOTIDINE 20 MG TABLET PO SCH ×2 (10:04→21:14)
[2018-07-14] MEDS: LEVOTHYROXINE SODIUM 0.1 MG TABLET PO SCH (10:04)
[2018-07-14] MEDS: PRENATAL VITAMIN W DHA CAPSULE PO SCH (10:04)
[2018-07-14] MEDS: DOCUSATE SODIUM 100 MG CAPSULE PO SCH ×2 (10:04→17:55)
--- NOTE | 2018-07-14 10:15 | PDOC PROGRESS REPORT ---
Subjective-OB Progress Note for:: 07/14/18 Subjective: Doing well, no c/o, Physical Exam (OB) Vital Signs: Temp Pulse Resp BP Pulse Ox 97.9 F 92 14 98/46 L 97 07/14/18 03:02 07/14/18 03:02 07/14/18 03:02 07/14/18 03:02 07/14/18 03:02 Intake & Output 07/13/18 07/14/18 07/15/18 06:59 06:59 06:59 Weight 64 kg - Lochia Lochia Amount: Scant < 10 ml Lochia Color: Rubra/Red - Abdomen Description: Soft, Round Hernia Present: No Fundal Description: Firm, Midline Fundal Height: u/u - u/2 Objective-Diagnostic Laboratory: 07/14/18 06:05 07/13/18 07/13/18 07/13/18 18:53 21:50 21:50 WBC 15.6 H RBC 3.77 Hgb 10.3 L Hct 31.0 L MCV 82 MCH 27.4 MCHC 33.3 RDW 15.4 H Plt Count 303 Seg Neutrophils % 75.1 Lymphocytes % 15.5 Monocytes % 8.0 Eosinophils % 0.2 Basophils % 1.2 Absolute Neutrophils 11.7 H Absolute Lymphocytes 2.4 Absolute Monocytes 1.2 Absolute Eosinophils 0.0 Absolute Basophils 0.2 Urine Color STRAW Urine Appearance CLEAR Urine pH 7.0 Ur Specific [place] 1.004 Urine Protein NEGATIVE Urine Glucose (UA) NEGATIVE Urine Ketones NEGATIVE Urine Blood NEGATIVE Urine Nitrite NEGATIVE Ur Leukocyte Esterase SMALL H Blood Type O POSITIVE Antibody Screen NEGATIVE 07/14/18 06:05 WBC 15.9 H RBC 3.61 L Hgb 10.0 L Hct 29.6 L MCV 82 MCH 27.8 MCHC 33.9 RDW 15.3 H Plt Count 267 Seg Neutrophils % 72.2 Lymphocytes % 17.8 Monocytes % 9.5 Eosinophils % 0.1 Basophils % 0.4 Absolute Neutrophils 11.5 H Absolute Lymphocytes 2.8 Absolute Monocytes 1.5 H Absolute Eosinophils 0.0 Absolute Basophils 0.1 Urine Color Urine Appearance Urine pH Ur Specific [place] Urine Protein Urine Glucose (UA) Urine Ketones Urine Blood Urine Nitrite Ur Leukocyte Esterase Blood Type Antibody Screen Assessment and Plan(PN) - Assessment and Plan (1) Gestational diabetes mellitus (GDM) Qualifiers: Gestational diabetes mellitus control: diet-controlled Is this a current diagnosis for this admission?: Yes (2) Vaginal delivery Is this a current diagnosis for this admission?: Yes - Time Spent with Patient Time with patient: Less than 15 minutes Medications reviewed and adjusted accordingly: Yes - Disposition Anticipated Discharge: Home Within: within 48 hours
[2018-07-15] MEDS: IBUPROFEN 800 MG TABLET PO SCH (05:43)
[2018-07-15 06:31] LABS: ABSOLUTE BASOPHILS # (AUTO) 0.2 10^3/uL (0.0-0.2); ABSOLUTE EOSINOPHILS # (AUTO) 0.2 10^3/uL (0.0-0.6); ABSOLUTE LYMPHOCYTES (AUTO) 3.6 10^3/uL (0.5-4.7); ABSOLUTE NEUT (AUTO) 7.5 10^3/uL (1.7-8.2); BASOPHILS % (AUTO) 1.3 % (0-2); EOSINOPHILS % (AUTO) 1.6 % (0-6); HEMATOCRIT 33.5 % (36.0-47.0); HEMOGLOBIN 11.1 g/dL (12.0-15.5); LYMPHOCYTES % (AUTO) 28.8 % (13-45); MEAN CORPUSCULAR HEMOGLOBIN 27.1 pg (27.0-33.4); MEAN CORPUSCULAR VOLUME 82 fl (80-97); PLATELET COUNT 266 10^3/uL (150-450); RED BLOOD COUNT 4.08 10^6/uL (3.72-5.28); RED CELL DISTRIBUTION WIDTH 15.5 % (11.5-14.0); SEGMENTED NEUTROPHILS % (AUTO) 60.3 % (42-78); TOTAL CELLS COUNTED % (AUTO) 100 %; WHITE BLOOD COUNT 12.5 10^3/uL (4.0-10.5)
[2018-07-15 08:08] VITALS: BP 109/70
[2018-07-15] MEDS: PRENATAL VITAMIN W DHA CAPSULE PO SCH (10:27)
[2018-07-15] MEDS: DOCUSATE SODIUM 100 MG CAPSULE PO SCH (10:28)
[2018-07-15] MEDS: LEVOTHYROXINE SODIUM 0.1 MG TABLET PO SCH (10:28)
[2018-07-15] MEDS: SENNOSIDES/DOCUSATE 8.6-50 MG 1 EACH TABLET PO SCH ×2 (10:28→10:51)
[2018-07-15] MEDS: FERROUS SULFATE 325 MG TABLET PO SCH (10:28)
--- NOTE | 2018-07-15 10:45 | PDOC PROGRESS REPORT ---
Subjective-OB Progress Note for:: 07/15/18 Subjective: Doing well, no c/o, ready to go home, baby is going home Physical Exam (OB) Vital Signs: Temp Pulse Resp BP Pulse Ox 97.2 F 74 18 109/70 98 07/15/18 10:42 07/15/18 10:42 07/15/18 10:42 07/15/18 07:22 07/15/18 10:42 Intake & Output 07/14/18 07/15/18 07/16/18 06:59 06:59 06:59 Intake Total 1000 Balance 1000 Weight 64 kg - PIH/Pre-Eclampsia Headache: Absent Epigastric Pain: No Visual Changes: No - Lochia Lochia Amount: Small 10-25 ml Lochia Color: Rubra/Red - Abdomen Description: Soft, Round Hernia Present: No Fundal Description: Firm, Midline Fundal Height: u/u - u/2 Objective-Diagnostic Laboratory: 07/15/18 06:22 07/15/18 06:22 WBC 12.5 H RBC 4.08 Hgb 11.1 L Hct 33.5 L MCV 82 MCH 27.1 MCHC 33.0 RDW 15.5 H Plt Count 266 Seg Neutrophils % 60.3 Lymphocytes % 28.8 Monocytes % 8.0 Eosinophils % 1.6 Basophils % 1.3 Absolute Neutrophils 7.5 Absolute Lymphocytes 3.6 Absolute Monocytes 1.0 Absolute Eosinophils 0.2 Absolute Basophils 0.2 Assessment and Plan(PN) - Assessment and Plan (1) Gestational diabetes mellitus (GDM) Qualifiers: Gestational diabetes mellitus control: diet-controlled Is this a current diagnosis for this admission?: Yes (2) Vaginal delivery Is this a current diagnosis for this admission?: Yes - Time Spent with Patient Time with patient: Less than 15 minutes Medications reviewed and adjusted accordingly: Yes - Disposition Anticipated Discharge: Home Within: within 24 hours
--- NOTE | 2018-07-15 10:48 | PDOC DISCHARGE SUMMARY ---
Final Diagnosis Discharge Date: 07/15/18 - Final Diagnosis (1) Gestational diabetes mellitus (GDM) Is this a current diagnosis for this admission?: Yes (2) Vaginal delivery Is this a current diagnosis for this admission?: Yes Discharge Data - Discharge Medication Prescriptions: Levothyroxine Sodium [Synthroid 0.1 mg Tablet] 0.1 mg PO DAILY #30 tablet Home Medications: No122/Iron/Folic Acid [ Multi Tablet] 1 tab PO DAILY 01/03/17 Acetaminophen [Tylenol 325 mg Tablet] 2 tab PO Q4 PRN 07/12/18 Levothyroxine Sodium [Synthroid 0.1 mg Tablet] 0.1 mg PO DAILY #30 tablet 07/15/18 Gestational Age: 38.5 Reason(s) for Admission: Onset of Labor Procedures: Ultrasound Intrapartum Procedure(s): Spontaneous Vaginal Delivery - Diagnosis Test Laboratory: Temp Pulse Resp BP Pulse Ox 97.2 F 74 18 109/70 98 07/15/18 10:42 07/15/18 10:42 07/15/18 10:42 07/15/18 07:22 07/15/18 10:42 07/13/18 07/13/18 07/14/18 18:53 21:50 06:05 RBC 3.77 3.61 L Hgb 10.3 L 10.0 L Hct 31.0 L 29.6 L Urine Opiates Screen NEGATIVE 07/15/18 06:22 RBC 4.08 Hgb 11.1 L Hct 33.5 L Urine Opiates Screen - Discharge information/Instructions Discharge Activity: Activity As Tolerated, No Lifting Over 10 Pounds, No Lifting/Push/Pulling, Pelvic Rest Discharge Diet: As Tolerated, Regular Disposition: HOME, SELF-CARE Follow up with: [facility] in: 4, Weeks
[2018-07-15] MEDS: FAMOTIDINE 20 MG TABLET PO SCH (10:51)
== END 2018-07-15 14:23 | disposition home or self-care (01) | DRG 807 ==
LOC: LC 18:46 → LR 21:04 → 2S 07-14 02:51
PROVIDERS: ADMIT Obstetrics & Gynecology; ATTEND Obstetrics & Gynecology
PROC: 10E0XZZ Delivery of Products of Conception, External Approach (ICD-10-PCS; principal; 2018-07-14)
PROC: 4A1HXCZ Monitoring of Products of Conception, Cardiac Rate, External Approach (ICD-10-PCS; 2018-07-14)
DX: O24.420 Gestational diabetes mellitus in childbirth, diet controlled (principal); Z37.0 Single live birth; O99.284 Endocrine, nutritional and metabolic diseases complicating childbirth; O70.0 First degree perineal laceration during delivery; E03.9 Hypothyroidism, unspecified; Z79.890 Hormone replacement therapy; Z3A.38 38 weeks gestation of pregnancy
CPT/HCPCS: 36415; 80307; 81005; 85025; 86592; 86850; 86900; 86901; 94760; J2370; J2590; J3010; J3490